=== PATIENT | male | born 1940 | race Caucasian/White ===

== ENCOUNTER 2020-07-22 09:31 | Inpatient (IN) | payer OTHER, MEDICARE ==
[2020-07-14 15:49] VITALS: BMI 30.7
[2020-07-22] MEDS ORDERED: PROPOFOL 20 ML ONE ×3 (10:41→13:18)
[2020-07-22] MEDS ORDERED: ONDANSETRON 4 MG/2 ML VIAL ONE (10:42)
[2020-07-22] MEDS ORDERED: TRANEXAMIC ACID 1000 MG/10 ML VIAL ONE ×2 (10:42→14:14)
[2020-07-22] MEDS ORDERED: LIDOCAINE HCL/PF 2% SDV 5ML VIAL ONE ×2 (10:42→12:58)
[2020-07-22] MEDS ORDERED: DEXAMETHASONE SOD PHOSPHATE 4 MG/1 ML VIAL ONE (10:42)
[2020-07-22] MEDS ORDERED: BUPIVACAINE HCL 50 ML ONE ×2 (10:55→12:18)
[2020-07-22] MEDS ORDERED: BUPIVACAINE LIPOSOME/PF (EXPAREL) 266 MG/20 ML VIAL ONE (10:55)
[2020-07-22] MEDS ORDERED: SODIUM CHLORIDE 0.9% P/F 10 ML VIAL IJ ONE (10:55)
[2020-07-22] MEDS ORDERED: MIDAZOLAM HCL 2 MG/2 ML SINGLE DOSE VIAL ONE (10:55)
[2020-07-22] MEDS ORDERED: VANCOMYCIN 1,000 MG VIAL (RESTRICTED TO ID ONLY) ONE (11:08)
[2020-07-22] MEDS ORDERED: BUPIVICAINE 0.25%/MORPH PF/KETOROLAC - 51ML DISP.SYRINGE IA ONE (12:38)
[2020-07-22] MEDS ORDERED: ceFAZolin SODIUM 1 GM VIAL ONE (12:39)
[2020-07-22] MEDS ORDERED: ONDANSETRON 4 MG/2 ML VIAL IVPUSH PRN ×2 (14:47→14:56)
[2020-07-22] MEDS ORDERED: MAG HYDROX/AL HYDROX/SIMETH 30 ML UNIT-DOSE CUP PO PRN (14:47)
[2020-07-22] MEDS ORDERED: ACETAMINOPHEN 1000 MG/100 ML VIAL (NON FORMULARY) IVPB ONE (14:56)
[2020-07-22] MEDS ORDERED: HYDROmorphone HCL CARPU-JECT 1 MG/1 ML DISP.SYRIN IVPUSH PRN ×2 (14:56)
[2020-07-22] MEDS ORDERED: oxyCODONE HCL 5 MG TABLET PO PRN ×2 (14:56)
[2020-07-22] MEDS ORDERED: LACTATED RINGERS SOLUTION 1,000 ML IV SCH ×2 (15:00)
[2020-07-22] MEDS: CEFAZOLIN 2 GM/D5W 2 GM/50 ML ML IVPB SCH (20:37)
[2020-07-22] MEDS: oxyCODONE HCL 10 MG SUSTAINED ACTING TABLET PO SCH (21:47)
[2020-07-22] MEDS: SENNOSIDES/DOCUSATE COMBO (SENNA PLUS) TABLET (UD) PO SCH (21:47)
[2020-07-22] MEDS: INSULIN SLIDING SCALE (NOVOLOG) 1 VIAL SQ SCH (22:49)
[2020-07-23] MEDS: CEFAZOLIN 2 GM/D5W 2 GM/50 ML ML IVPB SCH (01:15)
[2020-07-23] MEDS: ACETAMINOPHEN 325 MG TABLET (FP) PO SCH ×2 (06:27)
[2020-07-23] MEDS: INSULIN SLIDING SCALE (NOVOLOG) 1 VIAL SQ SCH ×2 (06:28→11:41)
[2020-07-23 07:52] LABS: MCHC 32.5 g/dl (32.0-35.9); MEAN CELL VOLUME 92.5 fl (80-96); MEAN PLT VOLUME 9.2 fl (7.5-11.1); PLATELET COUNT 180 K/MM3 (134-434); RBC 3.99 M/mm3 (4.00-5.60); RDW 13.9 % (11.9-15.9); WHITE BLOOD COUNT 9.2 K/mm3 (4.0-10.8)
[2020-07-23 07:58] LABS: CALCIUM 8.3 mg/dl (8.5-10); CREATININE 1.2 mg/dl (0.55-1.3)
[2020-07-23] MEDS: SENNOSIDES/DOCUSATE COMBO (SENNA PLUS) TABLET (UD) PO SCH (09:16)
[2020-07-23] MEDS: oxyCODONE HCL 10 MG SUSTAINED ACTING TABLET PO SCH (09:17)
[2020-07-23] MEDS ORDERED: GABAPENTIN 100 MG CAPSULE PO SCH ×2 (10:00→22:00)
[2020-07-23] MEDS ORDERED: FUROSEMIDE 40 MG TABLET (FP) PO SCH (10:00)
[2020-07-23] MEDS ORDERED: ASPIRIN COATED 81 MG TABLET.EC PO SCH (10:00)
[2020-07-23] MEDS ORDERED: EZETIMIBE 10 MG TABLET (FP) PO SCH (10:00)
[2020-07-23] MEDS ORDERED: PANTOPRAZOLE 40 MG TABLET PO SCH ×2 (10:00)
[2020-07-23] MEDS ORDERED: ENOXAPARIN NA (PORCINE) 30 MG/0.3 ML DISP.SYRIN SQ SCH ×2 (12:00)
[2020-07-23 14:22] VITALS: BP 161/58; PULSE 82; TEMP 98.5
[2020-07-23] MEDS ORDERED: LISINOPRIL 5 MG TABLET PO SCH (22:00)
== END 2020-07-23 16:09 | disposition home or self-care (01) | DRG 470 ==
LOC: FM/S 09:31
PROVIDERS: ADMIT Orthopaedic Surgery; ATTEND Orthopaedic Surgery
PROC: 0SRD0J9 Replacement of Left Knee Joint with Synthetic Substitute, Cemented, Open Approach (ICD-10-PCS; principal; 2020-07-22 13:02)
DX: M17.12 Unilateral primary osteoarthritis, left knee (principal); I10 Essential (primary) hypertension; E78.5 Hyperlipidemia, unspecified; I25.10 Atherosclerotic heart disease of native coronary artery without angina pectoris; E11.9 Type 2 diabetes mellitus without complications; Z95.5 Presence of coronary angioplasty implant and graft
CPT/HCPCS: 36415; 73560-TC-LT-FY; 80048; 82962; 85027; 88305-TC; 88311-TC; 94760; 97010-GP; 97116-GP; 97163-GP; J0131